=== PATIENT | male | born 1940 | race Caucasian/White ===

== ENCOUNTER → 2017-02-03 | Outpatient (CLI) | payer MEDICARE ==
[~2017-02-03] MED LIST: [UNRECOGNIZED DRUG - CODE]
== END | disposition home or self-care (01) ==
LOC: LAB 09:35
PROVIDERS: ATTEND Internal Medicine
DX: E11.9 Type 2 diabetes mellitus without complications (principal); B18.2 Chronic viral hepatitis C
CPT/HCPCS: 36415; 82105; 83036; 87522